=== PATIENT | female | born 1975 | race Caucasian/White ===

== ENCOUNTER → 2017-12-15 | Outpatient (CLI) | payer OTHER, MEDICAID ==
[~2017-12-15] MED LIST: ADDERALL 20 MG20 MG PO; ALBUTEROL2.5 MG/31; AMBIEN 10 MG TA10 MG PO; CIPRO250 M1 PO; CLEOCIN HCL300 MG PO; DIAZEPAM 10 MG10 M1 PO; DIFLUCAN150 M1 PO; FLEXERIL PO; HYDROCODONE-AP1 EAC6 PO; IBUPROFEN 400400 M1 PO; IBUPROFEN 600600 M1 PO; IBUPROFEN 800800 M1 PO; KEFLEX500 M1 PO; LAMICTAL XR200 MG PO; MEDROLDOSEPACK PO; NAPROSYN500 MG PO; NORCO 10-325 T1 EACH PO; NORCO 5-325 TA1 EAC1 PO; NORCO 5-325 TA1 EACH PO; PERCOCET 5-3251 EACH PO; PHENERGAN 25 MG25 M1 PO; PREDNISONE 1 MG1 M1 PO; PREMARIN1.25 MG PO; PROBIOTIC1 EAC1 PO; PROTONIX40 M2 PO; REQUIP XL2 MG PO; REQUIP2 MG PO; ROBAXIN 750 MG750 M1 PO; SEROQUEL400 MG PO; SOMA250 MG PO; VENTOLIN HFA 1818 GM INH; VICOPROFEN 2001 EACH PO; ZOFRAN 4 MG ORAL4 M1 DIS; ZYRTEC10 M5 PO
== END ==
LOC: M.ULTRA 13:50
DX: E04.1 Nontoxic single thyroid nodule (principal); R94.6 Abnormal results of thyroid function studies

== ENCOUNTER → 2018-01-08 | Outpatient (CLI) | payer OTHER, MEDICAID | LOC: M.CT 11:21 | DX: S09.93XA Unspecified injury of face, initial encounter (principal); K06.9 Disorder of gingiva and edentulous alveolar ridge, unspecified; G50.1 Atypical facial pain; J44.9 Chronic obstructive pulmonary disease, unspecified; K21.9 Gastro-esophageal reflux disease without esophagitis; X58.XXXA Exposure to other specified factors, initial encounter; Y93.89 Activity, other specified; Y92.89 Other specified places as the place of occurrence of the external cause; Y99.8 Other external cause status ==

== ENCOUNTER → 2018-07-12 | Outpatient (CLI) | payer OTHER, MEDICAID | LOC: M.RAD 14:39 | DX: Z12.31 Encounter for screening mammogram for malignant neoplasm of breast (principal) ==

== ENCOUNTER → 2019-06-03 | Outpatient (CLI) | payer OTHER, MEDICAID | LOC: M.RAD 13:59 | DX: E89.40 Asymptomatic postprocedural ovarian failure (principal); F17.200 Nicotine dependence, unspecified, uncomplicated; Z92.241 Personal history of systemic steroid therapy ==

== ENCOUNTER → 2019-07-16 | Outpatient (CLI) | payer OTHER, MEDICAID | LOC: M.RAD 11:08 | DX: Z12.31 Encounter for screening mammogram for malignant neoplasm of breast (principal) ==

== ENCOUNTER 2020-06-22 20:40 | Emergency (ER) | payer OTHER, MEDICAID ==
[~2020-06-22] VITALS: Ht 157.5 cm; Wt 65.8 kg
[2020-06-22] MEDS ORDERED: LAMOTRIGINE300 MG PO (21:08)
[2020-06-22] MEDS ORDERED: PROTONIX40 M2 PO (21:09)
[2020-06-22] MEDS ORDERED: MELOXICAM7.5 MG PO (21:10)
[2020-06-22] MEDS ORDERED: IBUPROFEN 800800 M1 PO (22:38)
[2020-06-22] MEDS ORDERED: NORCO 5-325 TA1 EAC2 PO (22:38)
[2020-06-22] MEDS ORDERED: CRUTCHES MISCELL (22:46)
[2020-06-22 23:00] VITALS: BP 132/68
== END 2020-06-22 23:00 | disposition home or self-care (01) ==
LOC: M.ERS 20:40
DX: S93.401A Sprain of unspecified ligament of right ankle, initial encounter (principal); K21.9 Gastro-esophageal reflux disease without esophagitis; J44.9 Chronic obstructive pulmonary disease, unspecified; F17.210 Nicotine dependence, cigarettes, uncomplicated; Z79.899 Other long term (current) drug therapy; Z88.6 Allergy status to analgesic agent; Z88.2 Allergy status to sulfonamides; Z90.710 Acquired absence of both cervix and uterus; Z90.49 Acquired absence of other specified parts of digestive tract; W18.39XA Other fall on same level, initial encounter; Y93.89 Activity, other specified; Y92.89 Other specified places as the place of occurrence of the external cause; Y99.8 Other external cause status

== ENCOUNTER → 2020-07-21 | Outpatient (CLI) | payer OTHER, MEDICAID ==
[~2020-07-21] MED LIST changes: +CRUTCHES MISCELL; +LAMOTRIGINE300 MG PO; +MELOXICAM7.5 MG PO; +NORCO 5-325 TA1 EAC2 PO
== END ==
LOC: M.RAD 14:37
PROVIDERS: ATTEND Nurse Practitioner Family
DX: Z12.31 Encounter for screening mammogram for malignant neoplasm of breast (principal)

== ENCOUNTER 2021-06-18 14:11 | Emergency (ER) | payer OTHER, MEDICAID ==
[~2021-06-18] VITALS: Ht 160 cm; Wt 65.8 kg
[2021-06-18] MEDS ORDERED: SINGULAIR 10 MG10 MG PO (14:22)
[2021-06-18] MEDS ORDERED: VALACYCLOVIR1000 MG PO (14:22)
[2021-06-18] MEDS ORDERED: FAMOTIDINE 20 M20 MG PO (14:23)
[2021-06-18] MEDS ORDERED: PROAIR HFA8.5 GM INH (14:23)
[2021-06-18] MEDS ORDERED: GABAPENTIN600 M1 PO (14:23)
[2021-06-18] MEDS ORDERED: PREMARIN0.3 MG PO (14:23)
[2021-06-18 15:13] LABS: ABSOLUTE BASOPHILS 0.1 thou/uL (0.0-0.2); ABSOLUTE EOSINOPHILS 0.1 thou/uL (0.0-0.7); ABSOLUTE LYMPHOCYTES 3.3 thou/uL (0.8-5.3); ABSOLUTE MONOCYTES 0.6 thou/uL (0.0-1.2); ABSOLUTE NEUTROPHILS 4.7 thou/uL (1.6-8.1); BASOPHILS 0.9 %; EOSINOPHILS 0.7 %; HEMATOCRIT 40.7 % (37.0-47.0); HEMOGLOBIN 13.9 gm/dL (12.0-15.0); LYMPHOCYTES 37.7 %; MCH 36.2 pg (26.0-34.0); MCHC 34.3 g/dL (28.0-37.0); MCV 105.5 fL (80.0-100.0); MONOCYTES 7.3 %; MPV 7.7 fl. (7.2-11.1); NUCLEATED RBCS 0 /100WBC; PLATELET COUNT* 260 thou/uL (150-400); POLYS 53.4 %; RBC 3.86 mil/uL (4.20-5.00); WBC 8.7 thou/uL (4.0-11.0)
[2021-06-18 15:21] LABS: CALCIUM 8.4 mg/dL (8.5-10.1); CREATININE 0.6 mg/dL (0.6-1.3); POTASSIUM 3.4 mmol/L (3.5-5.1)
[2021-06-18 15:26] LABS: ALBUMIN 3.7 g/dL (3.4-5.0); TOTAL BILIRUBIN 0.3 mg/dL (<0.1-1.0)
[2021-06-18 16:06] LABS: URINE BILIRUBIN NEGATIVE (Negative); URINE BLOOD NEGATIVE (Negative); URINE CLARITY CLEAR; URINE COLOR YELLOW; URINE GLUCOSE-RANDOM NEGATIVE (Negative); URINE KETONES TRACE (Negative); URINE LEUKOCYTES-REFLEX NEGATIVE (Negative); URINE NITRITE-REFLEX NEGATIVE (Negative); URINE PROTEIN NEGATIVE (Negative); URINE SPECIFIC GRAVITY <= 1.005 (1.005-1.030); URINE UROBILINOGEN 0.2 E.U./dl (0.2-1.0)
[2021-06-18] MEDS ORDERED: ONDANSETRON ODT4 MG PO (16:21)
[2021-06-18] MEDS ORDERED: LOPERAMIDE 2 MG2 M1 PO (16:21)
[2021-06-18] MEDS ORDERED: TRAMADOL 50 MG50 MG PO (16:47)
[2021-06-18 16:49] VITALS: BP 115/75
== END 2021-06-18 16:49 | disposition home or self-care (01) ==
LOC: M.ERS 14:11
PROVIDERS: Physician Assistant
DX: R19.7 Diarrhea, unspecified (principal); R42 Dizziness and giddiness; R10.84 Generalized abdominal pain; F31.9 Bipolar disorder, unspecified; K21.9 Gastro-esophageal reflux disease without esophagitis; J45.909 Unspecified asthma, uncomplicated; F17.210 Nicotine dependence, cigarettes, uncomplicated; Z90.49 Acquired absence of other specified parts of digestive tract; Z90.711 Acquired absence of uterus with remaining cervical stump; Z79.899 Other long term (current) drug therapy; Z88.5 Allergy status to narcotic agent; Z88.2 Allergy status to sulfonamides

== ENCOUNTER 2021-06-20 10:10 | Emergency (ER) | payer OTHER, MEDICAID ==
[~2021-06-20] VITALS: Ht 160 cm; Wt 68.0 kg
[~2021-06-20 10:10] MED LIST changes: +FAMOTIDINE 20 M20 MG PO; +GABAPENTIN600 M1 PO; +LOPERAMIDE 2 MG2 M1 PO; +ONDANSETRON ODT4 MG PO; +PREMARIN0.3 MG PO; +PROAIR HFA8.5 GM INH; +SINGULAIR 10 MG10 MG PO; +TRAMADOL 50 MG50 MG PO; +VALACYCLOVIR1000 MG PO
[2021-06-20 10:28] LABS: ABSOLUTE BASOPHILS 0.1 thou/uL (0.0-0.2); ABSOLUTE EOSINOPHILS 0.1 thou/uL (0.0-0.7); ABSOLUTE LYMPHOCYTES 3.8 thou/uL (0.8-5.3); ABSOLUTE MONOCYTES 0.6 thou/uL (0.0-1.2); ABSOLUTE NEUTROPHILS 5.2 thou/uL (1.6-8.1); BASOPHILS 0.9 %; HEMATOCRIT 42.2 % (37.0-47.0); HEMOGLOBIN 14.6 gm/dL (12.0-15.0); LYMPHOCYTES 38.9 %; MCHC 34.5 g/dL (28.0-37.0); MCV 104.4 fL (80.0-100.0); MONOCYTES 6.4 %; MPV 8.1 fl. (7.2-11.1); NUCLEATED RBCS 0 /100WBC; PLATELET COUNT* 310 thou/uL (150-400); POLYS 52.8 %; RBC 4.04 mil/uL (4.20-5.00); RDW-CV 12.9 % (10.5-14.5); WBC 9.8 thou/uL (4.0-11.0)
[2021-06-20 10:43] LABS: CALCIUM 9.2 mg/dL (8.5-10.1); CREATININE 0.7 mg/dL (0.6-1.3); POTASSIUM 3.5 mmol/L (3.5-5.1)
[2021-06-20 10:47] LABS: ALBUMIN 4.1 g/dL (3.4-5.0); TOTAL BILIRUBIN 0.3 mg/dL (<0.1-1.0); TOTAL PROTEIN 7.8 g/dL (6.4-8.2)
[2021-06-20 10:50] LABS: URINE BILIRUBIN NEGATIVE (Negative); URINE BLOOD TRACE (Negative); URINE CLARITY CLEAR; URINE COLOR YELLOW; URINE GLUCOSE-RANDOM NEGATIVE (Negative); URINE KETONES 1+ (Negative); URINE LEUKOCYTES-REFLEX NEGATIVE (Negative); URINE NITRITE-REFLEX NEGATIVE (Negative); URINE PROTEIN NEGATIVE (Negative); URINE SPECIFIC GRAVITY 1.015 (1.005-1.030); URINE UROBILINOGEN 0.2 E.U./dl (0.2-1.0)
[2021-06-20] MEDS ORDERED: MEDROLDOSEPACK PO (11:04)
[2021-06-20] MEDS ORDERED: TORADOL 10 MG T10 MG PO (11:04)
[2021-06-20] MEDS ORDERED: NORCO5 PO ×2 (11:06→11:16)
[2021-06-20 11:20] VITALS: BP 150/78
== END 2021-06-20 11:21 | disposition home or self-care (01) ==
LOC: M.ERS 10:10
PROVIDERS: Physician Assistant
DX: M54.50 Low back pain, unspecified (principal); F17.210 Nicotine dependence, cigarettes, uncomplicated; J45.909 Unspecified asthma, uncomplicated; K21.9 Gastro-esophageal reflux disease without esophagitis; Z90.710 Acquired absence of both cervix and uterus; Z88.5 Allergy status to narcotic agent; Z79.899 Other long term (current) drug therapy; Z88.2 Allergy status to sulfonamides

== ENCOUNTER → 2021-10-26 | Outpatient (CLI) | payer OTHER, MEDICAID ==
[~2021-10-26] MED LIST changes: +NORCO5 PO; +TORADOL 10 MG T10 MG PO
== END ==
LOC: M.RAD 12:39
PROVIDERS: ATTEND Family Medicine
DX: Z12.31 Encounter for screening mammogram for malignant neoplasm of breast (principal)